=== PATIENT | female | born 1985 | race African-American/Black ===

== ENCOUNTER 2017-03-12 16:52 | Emergency (ER) | payer OTHER ==
[~2017-03-12] VITALS: Ht 157.5 cm; Wt 90.7 kg
[2017-03-12 17:52] VITALS: BP 121/73
--- NOTE | 2017-03-12 18:14 | PHYS DOC ---
Past Medical History Past Medical History: No Pertinent History Past Surgical History: Other Additional Past Surgical Histo: knee Alcohol Use: None Drug Use: None Adult General Chief Complaint Chief Complaint: WRIST PAIN HPI HPI Patient is a 31 year old female presents the ED complaining of left wrist pain 1 day. Patient states she tripped and fell yesterday. Woke up with worsening wrist pain. Describes the pain as sharp. Rates the pain as 6 out of 10. States the pain is improved with Motrin. Denies fever, head/neck injury, LOC, vision changes or nausea/vomiting. Review of Systems Review of Systems Constitutional: Denies fever or chills [] Eyes: Denies change in visual acuity, redness, or eye pain [] HENT: Denies nasal congestion or sore throat [] Respiratory: Denies cough or shortness of breath [] Cardiovascular: No additional information not addressed in HPI [] GI: Denies abdominal pain, nausea, vomiting, bloody stools or diarrhea [] : Denies dysuria or hematuria [] Musculoskeletal: Complains of wrist pain. Denies back pain. [] Integument: Denies rash or skin lesions [] Neurologic: Denies headache, focal weakness or sensory changes [] Endocrine: Denies polyuria or polydipsia [] Allergies Allergies Allergies Coded Allergies Type Severity Reaction Last Updated Verified No Known Drug Allergies 03/12/17 No Physical Exam Physical Exam Constitutional: Well developed, well nourished, no acute distress, non-toxic appearance. [] HENT: Normocephalic, atraumatic, bilateral external ears normal, oropharynx moist, no oral exudates, nose normal. [] Eyes: PERRLA, EOMI, conjunctiva normal, no discharge. [] Neck: Normal range of motion, no tenderness, supple, no stridor. [] Cardiovascular:Heart rate regular rhythm, no murmur [] Lungs & Thorax: Bilateral breath sounds clear to auscultation [] Abdomen: Bowel sounds normal, soft, no tenderness, no masses, no pulsatile masses. [] Skin: Warm, dry, no erythema, no rash. [] Back: No tenderness, no CVA tenderness. [] Extremities: MILD LEFT LATERAL WRIST TENDERNESS. NO SWELLING OR OVERLYING SKIN CHANGES. FROM. NV INTACT. no cyanosis, no clubbing, ROM intact, no edema. [] Neurologic: Alert and oriented X 3, normal motor function, normal sensory function, no focal deficits noted. [] Psychologic: Affect normal, judgement normal, mood normal. [] Current Patient Data Vital Signs Vital Signs Date Time Temp Pulse Resp B/P (MAP) Pulse Ox O2 Delivery O2 Flow Rate FiO2 03/12/17 17:52 98.3 97 20 97 Room Air 98.3 EKG EKG [] Radiology/Procedures Radiology/Procedures PROCEDURE: WRIST 3V LEFT Indication: Wrist pain after fall today. Technique: 3 views of the left wrist are submitted for review. No comparison is available. Findings: There is no fracture or dislocation. There is no soft tissue swelling. Impression: Negative for fracture. [] Course & Med Decision Making Course & Med Decision Making Pertinent Labs and Imaging studies reviewed. (See chart for details) []Discussed imaging findings with patient. Patient's pain improved. Vital stable , no acute distress. Full range of motion. Patient placed in brace. Neurovascular intact post placement. Discussed symptomatic treatment and follow- up. Discussed reasons to return to the ED. Patient understands and agrees with plan. Dragon Disclaimer Dragon Disclaimer This electronic medical record was generated, in whole or in part, using a voice recognition dictation system. Departure Departure Impression: Primary Impression: Wrist sprain Disposition: HOME, SELF-CARE Condition: IMPROVED Referrals: UNKNOWN PCP NAME (PCP) VENKAT SAPP MD Patient Instructions: Wrist Sprain with [facility] JASON ARVIZU Mar 12, 2017 18:14
--- NOTE | 2017-03-13 08:22 | RAD ---
Indication: Wrist pain after fall today. Technique: 3 views of the left wrist are submitted for review. No comparison is available. Findings: There is no fracture or dislocation. There is no soft tissue swelling. Impression: Negative for fracture.
== END 2017-03-12 18:35 | disposition home or self-care (01) ==
LOC: ER 16:52
DX: S63.502A Unspecified sprain of left wrist, initial encounter (principal); W01.0XXA Fall on same level from slipping, tripping and stumbling without subsequent striking against object, initial encounter; Y93.89 Activity, other specified; Y99.8 Other external cause status; Y92.89 Other specified places as the place of occurrence of the external cause
CPT/HCPCS: 29125; 73110; 99284-25

== ENCOUNTER 2017-11-09 15:54 | Emergency (ER) | payer OTHER ==
[2017-11-09] MEDS: NEOMY/BACITR/POLYMYXIN OINT PACKET. TP (17:01)
== END 2017-11-09 17:03 | disposition home or self-care (01) ==
LOC: ER 17:03
DX: S60.461A Insect bite (nonvenomous) of left index finger, initial encounter (principal); L03.114 Cellulitis of left upper limb; W57.XXXA Bitten or stung by nonvenomous insect and other nonvenomous arthropods, initial encounter; Y93.89 Activity, other specified; Y99.8 Other external cause status; Y92.89 Other specified places as the place of occurrence of the external cause
CPT/HCPCS: 99283

== ENCOUNTER 2021-09-02 12:42 | Emergency (ER) | payer MEDICAID, OTHER ==
[~2021-09-02] VITALS: Ht 152.4 cm; Wt 99.0 kg
[~2021-09-02 12:42] MED LIST: MUPI22OI2 TP
[2021-09-02 12:45] VITALS: BP 122/64
[2021-09-02] MEDS ORDERED: IBUPROFEN 200 MG TABLET. PO ONE (13:15)
[2021-09-02] MEDS ORDERED: DEXAMETHASONE 4 MG TABLET PO ONE (13:15)
[2021-09-02] MEDS ORDERED: IBUP-1007 PO (13:21)
[2021-09-02] MEDS ORDERED: CYCL10TA19 PO (13:21)
--- NOTE | 2021-09-02 13:21 | PHYS DOC ---
Past Medical History Past Medical History: No Pertinent History Past Surgical History: Other Additional Past Surgical Histo: knee Smoking Status: Never Smoker Alcohol Use: None Drug Use: None General Adult EDM: Chief Complaint: SHOUDLER HPI: HPI: Patient is a 36 year old female who presents with 3 days ago she awoke in the morning and noticed that if she put her right arm all the way back or try to reach back for the covers to lift them up on her that she has weakness and pain. She states is like a sharp shooting type of pain. She denies numbness or tingling, focal weakness, injury, swelling of the extremity, chest pain, shortness of breath, headache, dizziness, vision change, coolness of the extremity, skin color change. She states it only hurts when she has arm laying a certain way or moves it a certain way. She is right handed. Denies any other past medical history. Review of Systems: Review of Systems: Constitutional: Denies fever or chills. [] Eyes: Denies change in visual acuity. [] HENT: Denies nasal congestion or sore throat. [] Respiratory: Denies cough or shortness of breath. [] Cardiovascular: Denies chest pain or edema. [] GI: Denies abdominal pain, nausea, vomiting, bloody stools or diarrhea. [] : Denies dysuria. [] Musculoskeletal: Denies back pain or + Right shoulder joint pain. +Right arm[] Integument: Denies rash. [] Neurologic: Denies headache, focal weakness or sensory changes. [] Endocrine: Denies polyuria or polydipsia. [] Lymphatic: Denies swollen glands. [] Psychiatric: Denies depression or anxiety. [] Heart Score: C/O Chest Pain: No Allergies: Allergies: Allergies Coded Allergies Type Severity Reaction Last Updated Verified No Known Drug Allergies 03/12/17 No Physical Exam: PE: Constitutional: Well developed, well nourished, no acute distress, non-toxic appearance. [] HENT: Normocephalic, atraumatic, bilateral external ears normal, oropharynx moist, no oral exudates, nose normal. [] Eyes: PERRLA, EOMI, conjunctiva normal, no discharge. [] Neck: Normal range of motion, no tenderness, supple, no stridor. [] Cardiovascular:Heart rate regular rhythm, no murmur [] Lungs & Thorax: Bilateral breath sounds clear to auscultation [] Abdomen: Bowel sounds normal, soft, no tenderness, no masses, no pulsatile masses. [] Skin: Warm, dry, no erythema, no rash. [] Back: No tenderness, no CVA tenderness. [] Extremities: No tenderness, no cyanosis, no clubbing, ROM intact, no edema. [] Neurologic: Alert and oriented X 3, normal motor function, normal sensory function, no focal deficits noted. [] Psychologic: Affect normal, judgement normal, mood normal. [] Normal physical exam Current Patient Data: Vital Signs: Vital Signs Date Time Temp Pulse Resp B/P (MAP) Pulse Ox O2 Delivery O2 Flow Rate FiO2 09/02/21 12:45 98.5 84 18 122/64 (83) 99 Room Air 98.5 EKG: EKG: [] Radiology/Procedures: Radiology/Procedures: [] Course & Med Decision Making: Course & Med Decision Making Pertinent Labs and Imaging studies reviewed. (See chart for details) See HPI. Alert and oriented x4. Ambulatory with a steady gait. Speaks in full clear sentences. Skin pink warm and dry. Radial pulse strong are present. Cap refill less than 2 seconds. Strength and otolaryngology physician is strong bilaterally equal bilaterally. Range of motion is within normal limits. When her arm is stretched out backward that is when she states she starts to get some pain in her upper arm. No extremity swelling. Sensations are intact. No other focal weakness. [] Dragon Disclaimer: Dragon Disclaimer: This electronic medical record was generated, in whole or in part, using a voice recognition dictation system. Departure Departure Impression: Primary Impression: Pinched nerve Disposition: 01 HOME / SELF CARE / HOMELESS Condition: STABLE Referrals: UNKNOWN PCP NAME (PCP) Patient Instructions: Pinched Nerve Additional Instructions: Follow-up with your primary care provider soon as possible. Take medication as prescribed and with food. Remember muscle relaxers will make you sleepy do not drive, work or drink any alcohol on top of this. If you begin having swelling or redness or full weakness in the arm you need return to the emergency room. Scripts Cyclobenzaprine Hcl (CYCLOBENZAPRINE HCL) 10 Mg Tablet 1 TAB PO TID for 5 Days, #15 TAB Prov: MAIDA RECIO APRN 09/02/21 Ibuprofen (IBUPROFEN) 600 Mg Tablet 600 MG PO PRN Q6HRS PRN for INFLAMMATION, #30 TAB Prov: MAIDA RECIO APRN 09/02/21 MAIDA RECIO APRN Sep 02, 2021 13:21
== END 2021-09-02 13:38 | disposition home or self-care (01) ==
LOC: ER 12:42
DX: G58.9 Mononeuropathy, unspecified (principal)
CPT/HCPCS: 99283